=== PATIENT | female | born 2000 | race African-American/Black ===

== ENCOUNTER 2024-03-09 00:31 | Emergency (ER) | payer SELFPAY | END 2024-03-09 01:30 | disposition home or self-care (01) | LOC: ERS 00:31 | DX: M65.4 Radial styloid tenosynovitis [de Quervain] (principal) | CPT/HCPCS: 99283 ==

== ENCOUNTER 2024-09-21 11:58 | Outpatient (CLI) | payer OTHER | END 2024-09-21 11:59 | disposition home or self-care (01) | LOC: BICULT 11:58 | DX: Z34.83 Encounter for supervision of other normal pregnancy, third trimester (principal); D57.3 Sickle-cell trait; D64.9 Anemia, unspecified; Z3A.29 29 weeks gestation of pregnancy | CPT/HCPCS: 76805 ==